=== PATIENT | female | born 1955 | race Caucasian/White ===

== ENCOUNTER → 2016-08-21 | Outpatient (CLI) | payer OTHER ==
[~2016-08-21] MED LIST: ACYC1CAP16 PO; BUPR150T3 PO; ESTR.9 PO; MACR100C PO; PHEN-426 PO; PROP10TA6 PO; TIZA4CAP PO; ZOLO25TA PO; ZOLP1TAB32 PO
[2016-08-21 16:22] LABS: BICARBONATE 31.3 MEQ/L (21.0-32.0); HDL CHOLESTEROL 84.7 MG/DL (40.0-60.0); INDIRECT BILIRUBIN 0.2 MG/DL (0.0-0.8); POTASSIUM 3.9 MEQ/L (3.5-5.1); TOTAL BILIRUBIN ADULT 0.3 MG/DL (0.2-1.0)
== END ==
LOC: PLAB 10:31
PROVIDERS: ATTEND Family Medicine
DX: E78.1 Pure hyperglyceridemia (principal); N18.2 Chronic kidney disease, stage 2 (mild)
CPT/HCPCS: 80048; 80061; 80076

== ENCOUNTER → 2016-12-12 | Outpatient (CLI) | payer OTHER ==
[2016-12-12 16:30] LABS: ALT (GPT) 23 U/L (10-53); ANION GAP 7 MEQ/L (5-15); AST (GOT) 17 U/L (15-37); BICARBONATE 30.8 MEQ/L (21.0-32.0); BLOOD UREA NITROGEN 10 MG/DL (7-18); CHLORIDE 106 MEQ/L (98-107); GLOMERULAR FILTRATION RATE 70 ML/MIN (>89); GLUCOSE,FASTING 107 MG/DL (74-99); POTASSIUM 4.3 MEQ/L (3.5-5.1); SODIUM (NA) 144 MEQ/L (136-145)
[2016-12-12 16:32] LABS: ALKALINE PHOSPHATASE 44 U/L (45-117); HDL CHOLESTEROL 63.8 MG/DL (40.0-60.0); INDIRECT BILIRUBIN 0.1 MG/DL (0.0-0.8); LDL CHOLESTEROL 117 MG/DL (0-99); TOTAL BILIRUBIN ADULT 0.2 MG/DL (0.2-1.0)
== END ==
LOC: PLAB 12:36
PROVIDERS: ATTEND Family Medicine
DX: E78.1 Pure hyperglyceridemia (principal)
CPT/HCPCS: 80048; 80061; 80076

== ENCOUNTER → 2017-04-03 | Outpatient (CLI) | payer OTHER ==
[~2017-04-03] MED LIST changes: +AMBI5TAB PO; +BUPR150CR PO; +CHLORHEXIDINE GLUCONATE 2 % 1 PACK (2 CLOTHS) TOPICAL PRN; +ESTR0.62 VAGINAL; +GLUC500C36 PO; +HYDR12.56 PO; +INSULIN HUMAN REGULAR 1,000 UNITS/10 ML VIAL SQ PRN; +LACTATED RINGER'S 1000 ML IV PRN; +LORA-392 SL; +METOPROLOL TARTRATE 25 MG TAB PO PRN; +POVIDONE IODINE 5% (ANTISEPSIS KIT) 4 APPLICATIONS EACH NARE PRN; +PROPOFOL 500 MG/50 ML INJ 50 ML ONE; +SODIUM CHLORID 0.9% 500 ML IV PRN; +VIIB10TA PO
[2017-04-03 10:13] VITALS: BP 119/80; PULSE 67; RESP 18; TEMP 98.1; O2SAT 98
--- NOTE | 2017-04-03 13:41 | EKG ---
Date Performed: 04/03/2017 Time Performed: 10:06:26 PTAGE: 61 years EKG: SINUS BRADYCARDIA POSSIBLE ANTERIOR MYOCARDIAL INFARCTION , PROBABLY OLD BORDERLINE ECG PREVIOUS TRACING : 06/06/2012 15.31 DOCTOR: Kris Kay Interpretating Date/Time 04/03/2017 13:39:10
[2017-04-03 13:50] VITALS: BP 107/71; PULSE 67; RESP 18; TEMP 97.6; O2SAT 98
--- NOTE | 2017-04-03 14:01 | MR ---
cc: ALBA CHERRY DATE: 04/03/2017 DATE OF : 1955 PROCEDURE Upper endoscopy and colonoscopy. INDICATION FOR PROCEDURE 1. History of gastroesophageal reflux disease. 2. Upper mid abdominal pain. 3. Constipation. 4. History of colon polyps, surveillance colonoscopy is being performed at this time as well. Photographs and biopsies were taken. PREMEDICATION Administered by anesthesiology. MONITORING Monitoring was accomplished with pulse oximeter, EKG, blood pressure monitor. PROCEDURE NOTE After informed consent was obtained and procedure, risks and benefits were explained including the risks of bleeding, sepsis, perforation, risk of anesthesia, the patient was placed in left lateral position and the video endoscope was inserted into the esophagus under direct visualization. The esophagus appeared to be normal, however, about 2 or 3 cm below the EG junction there appeared to be a previous lap band within an area that was slightly narrowed and with minimal resistance to pass with the scope. This was appreciated more so on the retroflex view. Photographs were taken. No mass lesions or abnormalities were noted otherwise. There was no evidence of gross esophagitis. The stomach itself appeared to be unremarkable otherwise throughout in the body and the antrum. The pylorus was patent. First, second, third portion of the duodenum were unremarkable. The scope was then gradually withdrawn and inspection of the rest of the proximal to mid esophagus was unremarkable also. The patient was repositioned and the colonoscope was inserted in the rectum. There was some tortuosity to the left colon and distal transverse colon. The scope was advanced to the cecal position. The ileocecal valve and the orifice of the ileocecal valve was normal, two diminutive polyps were found in the cecum. These were biopsied off and removed. There was slight evidence of minimal melanosis coli in the right colon as well. Endoscope was withdrawn and in the distal transverse colon one diminutive polyp was also found and biopsied off and removed also. The rest of the exam was unremarkable. In the rectum the scope was retroflexed. There was evidence of minimal hemorrhoids internally but the patient had rather large external anal folds with grade 1 to grade 2 external hemorrhoids as well. No active bleeding was noted. The patient tolerated these procedures well. No immediate complications were noted. IMPRESSION 1. Unremarkable panendoscopy. The patient has evidence of previous lap band in the proximal portion of the stomach, is not known if this has slipped upwards proximally since its original position. The stomach and esophagus were otherwise unremarkable. Duodenum was normal as well. 2. Colonoscopy revealed diminutive polyps, two in the cecum, one in the transverse colon, biopsied off and removed. There was evidence of minimal to mild melanosis coli in the right colon. Tortuosity was also noted in left colon and hemorrhoids were noted as mentioned above. PLAN Will follow the biopsies taken today of the colonic polyps. Recommend repeat colonoscopy in 5 years for surveillance due to prior history of colon polyps. Would treat the patient symptomatically with antispasmodic therapy for abdominal pain and follow up clinically as an outpatient. MD ALEXANDRIA Ramirez/MATTEO /1:20 PM /1:38 PM
== END ==
LOC: HSDC 09:25
PROVIDERS: ATTEND Internal Medicine Gastroenterology
DX: K21.9 Gastro-esophageal reflux disease without esophagitis (principal); D12.0 Benign neoplasm of cecum; D12.3 Benign neoplasm of transverse colon; K63.89 Other specified diseases of intestine; K64.1 Second degree hemorrhoids; K64.0 First degree hemorrhoids; K64.8 Other hemorrhoids; K59.00 Constipation, unspecified; Z98.84 Bariatric surgery status; Z01.810 Encounter for preprocedural cardiovascular examination
CPT/HCPCS: 88305; 93005

== ENCOUNTER → 2017-08-15 | Outpatient (CLI) | payer OTHER ==
[~2017-08-15] MED LIST changes: -ACYC1CAP16 PO; -BUPR150T3 PO; -CHLORHEXIDINE GLUCONATE 2 % 1 PACK (2 CLOTHS) TOPICAL PRN; -ESTR.9 PO; -INSULIN HUMAN REGULAR 1,000 UNITS/10 ML VIAL SQ PRN; -LACTATED RINGER'S 1000 ML IV PRN; -MACR100C PO; -METOPROLOL TARTRATE 25 MG TAB PO PRN; -PHEN-426 PO; -POVIDONE IODINE 5% (ANTISEPSIS KIT) 4 APPLICATIONS EACH NARE PRN; -PROPOFOL 500 MG/50 ML INJ 50 ML ONE; -SODIUM CHLORID 0.9% 500 ML IV PRN; -TIZA4CAP PO; -ZOLO25TA PO; -ZOLP1TAB32 PO
[2017-08-15 14:02] LABS: ALBUMIN 3.8 GM/DL (3.4-5.0)
[2017-08-15 14:07] LABS: CHOLESTEROL/ HDL RATIO 2.25 RATIO; DIRECT BILIRUBIN ADULT 0.1 MG/DL (0.0-0.2); HDL CHOLESTEROL 78.6 MG/DL (40.0-60.0); INDIRECT BILIRUBIN 0.2 MG/DL (0.0-0.8); TOTAL BILIRUBIN ADULT 0.3 MG/DL (0.2-1.0); TOTAL PROTEIN 7.7 GM/DL (6.4-8.2)
== END ==
LOC: PLAB 11:01
PROVIDERS: ATTEND Family Medicine
DX: E78.1 Pure hyperglyceridemia (principal)
CPT/HCPCS: 36415; 80061; 80076

== ENCOUNTER → 2017-08-20 | Outpatient (CLI) | payer OTHER ==
[2017-08-20 18:14] LABS: BASOPHIL % 0.3 % (0.0-2.0); EOSINOPHIL # 0.1 TH/MM3 (0-0.4); EOSINOPHIL % 2.4 % (0.0-4.0); HEMATOCRIT 39.6 % (35.0-46.0); HEMOGLOBIN 13.3 GM/DL (11.6-15.3); LYMPH % 46.6 % (9.0-44.0); LYMPHOCYTE # 2.2 TH/MM3 (1.0-4.8); MEAN CELL VOLUME 90.2 FL (80.0-100.0); MEAN CORPUSCULAR HEMOGLOBIN 30.3 PG (27.0-34.0); MEAN CORPUSCULAR HGB CONC 33.6 % (32.0-36.0); MEAN PLATELET VOLUME 7.1 FL (7.0-11.0); MONO % 6.8 % (0.0-8.0); MONOCYTE # 0.3 TH/MM3 (0-0.9); NEUT % 43.9 % (16.0-70.0); PLATELET COUNT 266 TH/MM3 (150-450); RED BLOOD COUNT 4.38 MIL/MM3 (4.00-5.30); RED CELL DISTRIBUTION WIDTH 13.4 % (11.6-17.2); WHITE BLOOD COUNT 4.7 TH/MM3 (4.0-11.0)
[2017-08-20 18:20] LABS: BICARBONATE 28.5 MEQ/L (21.0-32.0); CALCIUM 8.9 MG/DL (8.5-10.1); CREATININE 0.89 MG/DL (0.50-1.00)
[2017-08-20 18:30] LABS: FREE T4 1.08 NG/DL (0.76-1.46)
== END ==
LOC: PLAB 11:53
PROVIDERS: ATTEND Family Medicine
DX: E55.9 Vitamin D deficiency, unspecified (principal)
CPT/HCPCS: 36415; 80048; 82306; 84439; 84443; 85025

== ENCOUNTER → 2017-11-15 | Outpatient (CLI) | payer OTHER ==
[2017-11-15 13:40] LABS: AUTOMATED NEUTROPHIL # 1.7 TH/MM3 (1.8-7.7); BASOPHIL % 0.4 % (0.0-2.0); EOSINOPHIL # 0.1 TH/MM3 (0-0.4); EOSINOPHIL % 2.8 % (0.0-4.0); HEMATOCRIT 39.1 % (35.0-46.0); HEMOGLOBIN 12.9 GM/DL (11.6-15.3); LYMPH % 43.9 % (9.0-44.0); LYMPHOCYTE # 1.6 TH/MM3 (1.0-4.8); MEAN CELL VOLUME 89.3 FL (80.0-100.0); MEAN CORPUSCULAR HEMOGLOBIN 29.5 PG (27.0-34.0); MEAN PLATELET VOLUME 7.1 FL (7.0-11.0); MONO % 7.1 % (0.0-8.0); MONOCYTE # 0.3 TH/MM3 (0-0.9); NEUT % 45.8 % (16.0-70.0); PLATELET COUNT 298 TH/MM3 (150-450); RED BLOOD COUNT 4.38 MIL/MM3 (4.00-5.30); RED CELL DISTRIBUTION WIDTH 13.9 % (11.6-17.2); WHITE BLOOD COUNT 3.7 TH/MM3 (4.0-11.0)
[2017-11-15 13:48] LABS: ALBUMIN 3.5 GM/DL (3.4-5.0); BICARBONATE 30.6 MEQ/L (21.0-32.0); CALCIUM 9.3 MG/DL (8.5-10.1); CREATININE 0.96 MG/DL (0.50-1.00); DIRECT BILIRUBIN ADULT 0.1 MG/DL (0.0-0.2)
[2017-11-15 13:56] LABS: CHOLESTEROL/ HDL RATIO 2.16 RATIO; FREE T4 1.1 NG/DL (0.76-1.46); HDL CHOLESTEROL 70.6 MG/DL (40.0-60.0); INDIRECT BILIRUBIN 0.2 MG/DL (0.0-0.8); TOTAL BILIRUBIN ADULT 0.3 MG/DL (0.2-1.0); TOTAL PROTEIN 7.2 GM/DL (6.4-8.2)
== END ==
LOC: PLAB 10:25
PROVIDERS: ATTEND Family Medicine
DX: E55.9 Vitamin D deficiency, unspecified (principal); E78.1 Pure hyperglyceridemia
CPT/HCPCS: 36415; 80048; 80061; 80076; 82306; 84439; 84443; 85025

== ENCOUNTER 2018-04-10 00:39 | Inpatient (IN) ==
[2018-04-10 01:36] LABS: Baso % (Auto) 0.2 % (0.0-2.0); Eos # (Auto) 0.1 th/mm3 (0.0-0.4); Eos % (Auto) 0.7 % (0.0-4.0); Hemoglobin 13.8 gm/dL (11.6-15.3); Lymph # (Auto) 2.4 th/mm3 (1.0-4.8); Lymph % (Auto) 30.2 % (9.0-44.0); Mean Corpuscular HGB Conc 32.8 % (32.0-36.0); Mean Corpuscular Hemoglobin 29.8 pg (27.0-34.0); Mean Corpuscular Volume 90.9 fL (80.0-100.0); Mono # (Auto) 0.4 th/mm3 (0.0-0.9); Mono % (Auto) 4.9 % (0.0-8.0); Neut # (Auto) 5.1 th/mm3 (1.8-7.7); Platelet Count 284 th/mm3 (150-450); Red Blood Count 4.62 mil/mm3 (4.00-5.30); Red Cell Distribution Width 13.5 % (11.6-17.2)
[2018-04-10 01:53] LABS: Alanine Aminotransferase 19 U/L (10-53); Albumin 3.9 g/dL (3.4-5.0); Anion Gap 7 meq/L (5-15); Aspartate Aminotransferase 10 U/L (15-37); Blood Urea Nitrogen 8 mg/dL (7-18); Calcium 9.3 mg/dL (8.5-10.1); Carbon Dioxide 32.2 meq/L (21.0-32.0); Chloride 103 meq/L (98-107); Glomerular Filtration Rate 69 mL/min (>89); Glucose,Random 91 mg/dL (74-106); Lipase 91 U/L (73-393); Magnesium 2.3 mg/dL (1.5-2.5); Potassium 3.4 meq/L (3.5-5.1); Sodium 142 meq/L (136-145)
[2018-04-10 01:55] LABS: Alkaline Phosphatase 30 U/L (45-117); Total Protein 7.8 g/dL (6.4-8.2)
--- NOTE | 2018-04-10 02:00 | ED ---
HPI General Chief complaint: Nausea/Vomiting/Diarrhea Stated complaint: NV Time Seen by Provider: 04/10/18 01:21 Source: patient Mode of arrival: ambulatory Limitations: no limitations History of Present Illness HPI Narrative: 62-year-old female presents to the emergency department by private transportation for complaint of nausea and recurrent vomiting. Patient states that she has had lap band procedure performed and over the past year has had difficulties with complications from the lap band. Within the past month she has had constant frequent reflux and nausea and vomiting. Patient reportedly developed fever and was started on azithromycin by phone call from her bariatric surgeon's office yesterday azithromycin. Patient states she has prescription for Zofran which is provided no symptom relief. Patient is reportedly waiting to have scheduled removal of her lap band by her bariatric surgeon Dr. Cho. Patient has had upper endoscopy by her psych np who suggested that the LAP-BAND has moved and is displaced and has complications secondary to adhesions. Patient states that her symptoms are not different but just persistent so because of frustration she came to the emergency room tonight patient states that she typically during the day is able to handle her reflux secretions and when she has reflux she typically has coughing spasms which sometimes cause her to reportedly aspirate. Patient states this is becoming more frequent and more intense. Patient does not complain of chest pain or shortness of breath. MD complaint: Reports nausea, vomiting and abdominal pain Onset (ago): week(s) Description of Vomiting: food contents and watery Description of Diarrhea: none Associated Abdominal Pain: Yes Location of pain: Reports periumbilical and LUQ Radiation: does not radiate Severity: similar to previous episodes Quality: Reports cramping and stabbing Pain Consistency: intermittent and colicky Relieving factors: rest and other Exacerbating factors: eating and other Context: Reports recent antibiotic use and history of abdominal surgery (Lap band); Denies foreign travel, possible food poisoning, sick contacts, recent surgery/procedure, alcohol abuse, trauma, anticoagulant use, aspirin use, caffeine, self induced, smoking, CO exposure, new medication and marijuana use Associated symptoms: Reports cough and nausea/vomiting; Denies myalgias, chest pain, diaphoresis, fever/chills, headaches, loss of appetite, malaise, rash, dysuria, shortness of breath, syncope, weakness, decreased urine output, fecal incontinence, tenesmus, altered mental status, anxiety, fatigue, bloating, numbness, tinnitus, palpitation and change in vision Related Data Home Medications Medication Instructions Recorded Confirmed aripiprazole 2 mg PO DAILY 04/10/18 04/10/18 azithromycin 250 mg PO DAILY 04/10/18 04/10/18 bupropion HCl 150 mg PO BID 04/10/18 04/10/18 conjugated estrogens [Premarin] 0.625 mg PO DAILY 04/10/18 04/10/18 fenofibrate 150 mg PO DAILY 04/10/18 04/10/18 hydrochlorothiazide 12.5 mg PO DAILY 04/10/18 04/10/18 lorazepam 1 mg PO DAILY 04/10/18 04/10/18 ondansetron 4 mg PO QID PRN 04/10/18 04/10/18 pantoprazole 40 mg PO DAILY 04/10/18 04/10/18 propranolol 10 mg PO BID 04/10/18 04/10/18 sennosides [Senna Laxative] 8.6 mg PO BID PRN 04/10/18 04/10/18 sucralfate 1 g PO Q8HR PRN 04/10/18 04/10/18 valacyclovir 500 mg PO DAILY 04/10/18 04/10/18 zolpidem 5 mg PO HS 04/10/18 04/10/18 Allergies Allergy/AdvReac Type Severity Reaction Status Date / Time No Known Allergies Allergy Verified 04/10/18 00:41 Review of Systems ROS: all other systems reviewed are negative PMFSH Medical History Medical History Basal cell carcinoma (Acute) GERD (gastroesophageal reflux disease) (Acute) History of hysterectomy (Acute) Hypertension (Acute) Skin cancer (Acute) Surgical History Surgical History History of ovarian resection (Acute) Hx of cholecystectomy (Acute) Hx of laparoscopic gastric banding (Acute) Hx of tonsillectomy (Acute) Family History Family History Father Diabetes Hypertension Social History Social History Substance History: No History of Abuse Second Hand Smoke Exposure: No Smoking Status: Former smoker How Often Do You Have a Drink Containing Alcohol: Monthly or less Recent Travel in [facility] within the Last 8 Weeks: No Recent Out of Country Travel within the Last 8 Weeks: No Immunization History Tetanus Immunization: <5 Years Exam Narrative Exam Narrative: GENERAL: Well-nourished, well-developed patient. No acute distress no respiratory distress. Triage vital signs are within normal range. Room air O2 saturation 98% no tachypnea no tachycardia patient is normotensive and afebrile. SKIN: Focused skin assessment warm/dry. HEAD: Normocephalic. EYES: No scleral icterus. No injection or drainage. NECK: Supple, trachea midline. No JVD or lymphadenopathy. CARDIOVASCULAR: Regular rate and rhythm without murmurs, gallops, or rubs. RESPIRATORY: Breath sounds equal bilaterally. No accessory muscle use. GASTROINTESTINAL: Abdomen soft, non-tender, nondistended. MUSCULOSKELETAL: No cyanosis, or edema. BACK: Nontender without obvious deformity. No CVA tenderness. Course Initial Documented Vital Signs Temperature 98.9 F 04/10/18 00:41 Pulse Rate 72 04/10/18 00:41 Respiratory Rate 16 04/10/18 00:41 Blood Pressure 117/60 04/10/18 00:41 Pulse Oximetry 96 04/10/18 00:41 Last Documented Vital Signs Temperature 97.6 F 04/11/18 00:00 Pulse Rate 56 L 04/11/18 00:00 Respiratory Rate 16 04/11/18 00:00 Blood Pressure 86/54 L 04/11/18 00:00 Pulse Oximetry 94 L 04/11/18 00:00 Medical Decision Making [facility] Narrative Medical decision making narrative: althoughPatient with chronic complications post lap band with reported escalating symptoms over the past 1 month and past 3 days. Patient is prescribed azithromycin and Zofran for symptoms. Patient has been in contact with her bariatric surgeon and actually was prescribed azithromycin yesterday from the office. Patient is waiting to have her lap band device removed. Patient reports none of her symptoms are new although they seem to be more intense over the past 3 days. Upper endoscopy by her psych np Dr. Oconnell last performed 04/03/17 showed a normal esophagus and normal stomach of note for procedure narrowing just distal to the GE junction suspicious for scarring. Lab specimens collected for resulting patient administered Zofran 4 mg IV CBC with automated differential is normal. Chest x-ray per reading radiologist shows area of suspicion for mild perihilar infiltrate on the right, patient has normal range vital signs afebrile, lactic acid is not elevated at 1.2, patient states that she has been dealing with reported aspiration over the past several weeks Due to report of frequent vomiting with suspected possible episodes of aspiration reportedly she was just started on azithromycin however concern for patient reporting that she does not feel well and imaging study identifying possible infiltrate therefore will broaden antibiotic spectrum to include Zosyn and Flagyl as well as her current azithromycin which she is taken today 500 mg with recommendation for admission. Patient states that she does not feel like she wants to be admitted does not feel like she needs to be and has follow-up with her primary care and her bariatric surgeon. Patient is willing to receive IV antibiotics as planned. Blood cultures are pending. Patient reports now vomiting stomach contents from previously administered oral acetaminophen. Patient identified to have fever of 102.[address] abdomen pelvis identifies dilation of the proximal stomach proximal to lap band site and lower esophagus. Patient's case discussed with bariatric surgeon Dr. Cho request the patient be admitted to medicine service for management of pneumonia request Gastrografin swallow in the a.m. with consult to him in the a.m. Patient is willing to stay as she states she feels worse now that she has developed fever and has had chills. Patient's case discussed with medicine service [facility] MD Dr Mcgarry At 435 temperature elevation 102.5 f. Patient had received acetaminophen earlier. Blood cultures obtained prior to administration of IV antibiotics. Patient given additional bolus of normal saline. In view of infiltrate fever and report of aspiration patient will be admitted for ongoing IV antibiotics and management of possible aspiration pneumonia Medical Screen Exam Complete: Yes Emergency Medical Condition: Yes Differential Diagnosis Differential Diagnosis: Vomiting, ileus, bowel obstruction, gastroenteritis, pancreatitis, gastritis, biliary colic Medical Records Medical records reviewed: Yes I reviewed the patient's medical records. Lab Data Result diagrams: 04/10/18 01:25 04/10/18 01:25 Lab Results 04/10/18 04/10/18 04/10/18 Range/Units 01:25 01:25 02:20 WBC 8.0 (4.0-11.0) th/mm3 RBC 4.62 (4.00-5.30) mil/mm3 Hgb 13.8 (11.6-15.3) gm/dL Hct 42.0 (35.0-46.0) % MCV 90.9 (80.0-100.0) fL MCH 29.8 (27.0-34.0) pg MCHC 32.8 (32.0-36.0) % RDW 13.5 (11.6-17.2) % Plt Count 284 (150-450) th/mm3 MPV 7.0 (7.0-11.0) fL Neut % (Auto) 64.0 (16.0-70.0) % Lymph % (Auto) 30.2 (9.0-44.0) % [place] % (Auto) 4.9 (0.0-8.0) % Eos % (Auto) 0.7 (0.0-4.0) % Baso % (Auto) 0.2 (0.0-2.0) % Neut # (Auto) 5.1 (1.8-7.7) th/mm3 Lymph # (Auto) 2.4 (1.0-4.8) th/mm3 [place] # (Auto) 0.4 (0.0-0.9) th/mm3 Eos # (Auto) 0.1 (0.0-0.4) th/mm3 Baso # (Auto) 0.0 (0.0-0.2) th/mm3 WBC Differential . Differential Comment Auto diff final Sodium 142 (136-145) meq/L Potassium 3.4 L (3.5-5.1) meq/L Chloride 103 (98-107) meq/L Carbon Dioxide 32.2 H (21.0-32.0) meq/L Anion Gap 7 (5-15) meq/L BUN 8 (7-18) mg/dL Creatinine 0.84 (0.50-1.00) mg/dL Estimated GFR 69 L (>89) mL/min Random Glucose 91 (74-106) mg/dL Lactic Acid 1.2 (0.4-2.0) mmol/L Calcium 9.3 (8.5-10.1) mg/dL Magnesium 2.3 (1.5-2.5) mg/dL Total Bilirubin 0.5 (0.2-1.0) mg/dL AST 10 L (15-37) U/L ALT 19 (10-53) U/L Alkaline Phosphatase 30 L (45-117) U/L Total Protein 7.8 (6.4-8.2) g/dL Albumin 3.9 (3.4-5.0) g/dL Lipase 91 (73-393) U/L Urine Color (Yellw/Straw) Urine Clarity (Clear) Urine pH (5.0-8.5) Ur Specific [place] (1.002-1.035) Urine Protein (Neg-Trace) mg/dL Urine Glucose (UA) (Negative) mg/dL Urine Ketones (Negative) mg/dL Urine Occult Blood (Negative) Urine Nitrate (Negative) Urine Bilirubin (Negative) Urine Urobilinogen (Less than 2) mg/dL Ur Leukocyte Esterase (Negative) Urine RBC (0-3) /hpf Urine WBC (0-5) /hpf Ur Squamous Epith Cells (0-5) /hpf Urine Mucus (Occasional) /lpf Micro UA Comment Ur Microscopic Review Urine Culture Comments 04/10/18 Range/Units 06:45 WBC (4.0-11.0) th/mm3 RBC (4.00-5.30) mil/mm3 Hgb (11.6-15.3) gm/dL Hct (35.0-46.0) % MCV (80.0-100.0) fL MCH (27.0-34.0) pg MCHC (32.0-36.0) % RDW (11.6-17.2) % Plt Count (150-450) th/mm3 MPV (7.0-11.0) fL Neut % (Auto) (16.0-70.0) % Lymph % (Auto) (9.0-44.0) % [place] % (Auto) (0.0-8.0) % Eos % (Auto) (0.0-4.0) % Baso % (Auto) (0.0-2.0) % Neut # (Auto) (1.8-7.7) th/mm3 Lymph # (Auto) (1.0-4.8) th/mm3 [place] # (Auto) (0.0-0.9) th/mm3 Eos # (Auto) (0.0-0.4) th/mm3 Baso # (Auto) (0.0-0.2) th/mm3 WBC Differential Differential Comment Sodium (136-145) meq/L Potassium (3.5-5.1) meq/L Chloride (98-107) meq/L Carbon Dioxide (21.0-32.0) meq/L Anion Gap (5-15) meq/L BUN (7-18) mg/dL Creatinine (0.50-1.00) mg/dL Estimated GFR (>89) mL/min Random Glucose (74-106) mg/dL Lactic Acid (0.4-2.0) mmol/L Calcium (8.5-10.1) mg/dL Magnesium (1.5-2.5) mg/dL Total Bilirubin (0.2-1.0) mg/dL AST (15-37) U/L ALT (10-53) U/L Alkaline Phosphatase (45-117) U/L Total Protein (6.4-8.2) g/dL Albumin (3.4-5.0) g/dL Lipase (73-393) U/L Urine Color Yellow (Yellw/Straw) Urine Clarity Clear (Clear) Urine pH 5.0 (5.0-8.5) Ur Specific [place] Greater than 1.060 H (1.002-1.035) Urine Protein Negative (Neg-Trace) mg/dL Urine Glucose (UA) Negative (Negative) mg/dL Urine Ketones Negative (Negative) mg/dL Urine Occult Blood Small H (Negative) Urine Nitrate Negative (Negative) Urine Bilirubin Negative (Negative) Urine Urobilinogen Less than 2 (Less than 2) mg/dL Ur Leukocyte Esterase Negative (Negative) Urine RBC 2 (0-3) /hpf Urine WBC Less than 1 (0-5) /hpf Ur Squamous Epith Cells 2 (0-5) /hpf Urine Mucus Few H (Occasional) /lpf Micro UA Comment Culture not ind Ur Microscopic Review Not Reportable Urine Culture Comments Culture not ind Imaging Data Radiologist's impression: Chest X-Ray 04/10/18 01:21 CONCLUSION: Mild suspected patchy consolidation in the right perihilar region. Abdomen/Pelvis CT 04/10/18 03:52 CONCLUSION: 1. Lap band in place with distention of the stomach above the lap band and the distal esophagus. 2. Patchy areas of consolidation or atelectasis in the lower lungs bilaterally. 3. Hepatic steatosis. Discharge Plan Discharge Disposition Patient Disposition: 30 Still Patient Discharge Condition Condition: Stable Discharge Details Diagnosis: Vomiting, Pneumonia, Hx of laparoscopic gastric banding Physicians Team ED Provider: Elisa Fernando Primary Care Provider: Marky Farrar Attending Provider: Katy Wells Other Providers: Piter Wilkes ED Status: Left Department Discharge Information Discharge Date/Time: 04/10/18 06:50
--- NOTE | 2018-04-10 02:05 | XR ---
EXAM DATE: 04/10/2018 1:21 AM EDT AGE/SEX: 62 years / Female INDICATIONS: Chest pain. CLINICAL DATA: This is the patient's initial encounter. Patient reports that signs and symptoms have been present for 1 day and indicates a pain score of 5/10. MEDICAL/SURGICAL HISTORY: None. None. COMPARISON: No prior exams available for comparison. FINDINGS: The heart size is normal. There are some patchy density seen in the right perihilar region. There is linear density at the right mid lung likely related to atelectasis or thickening of the fissure. The left lung is clear. The costophrenic angles are clear. The bony structures are intact. CONCLUSION: Mild suspected patchy consolidation in the right perihilar region. Electronically signed by: Dony Albert MD 04/10/2018 2:03 AM EDT
[2018-04-10] MEDS ORDERED: Sodium Chlor 0.9% Inj 500 ML IV.SIG SCH (03:00)
[2018-04-10] MEDS ORDERED: Piperacil/Tazo 4.5 GM Premix 4.5 GM/100 ML BAG IV.SIG ONE (03:17)
[2018-04-10] MEDS ORDERED: Ibuprofen Liq 100 MG/5 ML UDC PO ONE (04:39)
--- NOTE | 2018-04-10 05:12 | CT ---
EXAM DATE: 04/10/2018 3:58 AM EDT AGE/SEX: 62 years / Female INDICATIONS: Upper abdominal pain with nausea and vomiting. CLINICAL DATA: This is the patient's initial encounter. Patient reports that signs and symptoms have been present for 2 days and indicates a pain score of 4/10. MEDICAL/SURGICAL HISTORY: None. Hysterectomy. Cholecystectomy. Gastric band. ORAL CONTRAST: No oral contrast ingested. RADIATION DOSE: 16.89 CTDI (mGy) [place] [facility] [place] 06/05/2012. . TECHNIQUE: Multiple contiguous axial images were obtained through the abdomen and pelvis following b olus infusion of 70 ml Omnipaque 350 (iohexol) nonionic water-soluble contrast as a single exam dos e. No oral contrast ingested. Using automated exposure control and adjustment of the mA and/or kV ac cording to patient size, radiation dose was kept as low as reasonably achievable to obtain optimal di agnostic quality images. DICOM format image data is available electronically for review and comparis on. FINDINGS: Lower Lungs: There are patchy areas of consolidation or atelectasis at the lower lungs bilaterally. Liver: There is diffuse decreased attenuation to the liver. No focal hepatic lesions are seen. The pa tient is status post cholecystectomy. Spleen: Homogeneous density without enlargement. Pancreas: Unremarkable without mass or calcification. Kidneys: Normal in size and shape. No evidence of mass or hydronephrosis. Adrenal Glands: Unremarkable. Aorta: The aorta and proximal iliac vessels are grossly unremarkable without aneurysmal dilation. Bowel/Mesentery: There is a lap band present. There is some distention of stomach above the lap band and distention of the distal esophagus. The remaining aspects of the bowel appears normal. The appen nicholas appears normal. Abdominal Wall: Intact. Retroperitoneum: No evidence of adenopathy in the retrocrural, para-aortic, or deep pelvic regions. Bladder: Contours are smooth. Reproductive Organs: The patient is status post hysterectomy. Inguinal: The inguinal region is unremarkable without evidence of adenopathy. Bony Structures: There is degenerative change at the lower lumbar spine. CONCLUSION: 1. Lap band in place with distention of the stomach above the lap band and the distal esophagus. 2. Patchy areas of consolidation or atelectasis in the lower lungs bilaterally. 3. Hepatic steatosis. Electronically signed by: Dony Albert MD 04/10/2018 5:11 AM EDT
[2018-04-10] MEDS ORDERED: Acetaminophen 325 MG Tablet PO PRN (05:57)
[2018-04-10] MEDS ORDERED: Bisacodyl 10 MG Supp RECTAL PRN ×2 (05:57→13:13)
[2018-04-10 06:56] LABS: Bilirubin,Urine Negative (Negative); Clarity,Urine Clear (Clear); Color,Urine Yellow (Yellw/Straw); Glucose,Urine (UA) Negative (Negative); Leukocyte Esterase,Urine Negative (Negative); Mucus,Urine Few /lpf (Occasional); Nitrite,Urine Negative (Negative); Squamous Epithelial Cell,Urine 2 /hpf (0-5)
[2018-04-10] MEDS ORDERED: Senna/Docusate Sodium 8.6/50 MG Tablet PO SCH (09:00)
--- NOTE | 2018-04-10 09:02 | P.HP ---
History of Present Illness Service: Hospitalist Primary Care Physician: Marky Farrar MD Chief Complaint: intractable nausea and vomiting History of Present Illness: This is a 62yo female with a PMHX of HTN, melanoma, GERD, anxiety, depression and previous lap band surgery who presented to [facility] ED with complaints of intractable nausea and vomiting. Patient states she had a lap band placed approximately 10 years ago however over the past year she has had increasing difficulties with inability to keep anything down secondary to complications from her lap band. Over the past month and more so over the past 3-4 days, she has had near constant reflux, nausea and vomiting. She has been unable to sleep. She also has developed fever and was recently started on azithromycin by her bariatric surgeon. She has been taking Zofran at home without any relief. Patient is reportedly scheduled to have removal of her lap band in the near future by her bariatric surgeon Dr. Cho. Patient has had a recent upper endoscopy by her shadowgraph operator who suggested the lap to be removed due to it being displaced and having a lot of adhesions. Patient states she came to the ED today because she is having difficulty managing her secretions and states that she has coughing spasms that cause her to aspirate. She denies any complaints of chest pain or shortness of breath. She complains of associated abdominal pain mostly on the left side. Review of Systems All other systems reviewed negative except as stated in HPI PMFSH - History History Provided By: Patient - Medical History Medical History: Medical History (Last Updated 04/10/18 @ 15:23 by Ella Coto) Basal cell carcinoma GERD (gastroesophageal reflux disease) History of hysterectomy Hypertension Skin cancer - Surgical History Surgical History: Surgical History (Last Reviewed 04/10/18 @ 09:18 by Ella Coto) History of ovarian resection Hx of cholecystectomy Hx of laparoscopic gastric banding Hx of tonsillectomy - Family History Family History: Family History (Last Updated 04/10/18 @ 09:18 by Ella Coto) Father Diabetes Hypertension - Social History I have reviewed the patient's Social History: Yes - Tobacco History Second Hand Smoke Exposure: No Tobacco Use In Past 30 Days: No Smoking Status: Former smoker - Alcohol History How Often Do You Have a Drink Containing Alcohol: Monthly or less - Substance Use History Substance History: No History of Abuse - Travel History Recent Travel in the [facility] Within the Last 8 Weeks: No Recent Travel Out of the Country Within the Last 8 Weeks: No - Immunization History Tetanus Immunization: <5 Years Medications and Allergies Active Medications: Active Medications Acetaminophen (Tylenol) 650 mg PO Q4H PRN PRN Reason: Temp > 100.4 Al Hydroxide/Mg Hydroxide (Milk Of Magnesia Liq) 30 ml PO Q12H PRN PRN Reason: Mild Constipation Bisacodyl (Dulcolax Supp) 10 mg RECTAL DAILY PRN PRN Reason: SEVERE CONSITIPATION Sodium Chloride (Ns Inj) 500 mls @ 0 mls/hr IV.SIG BOLUS CLEMENC[place] Last Infusion: 04/10/18 03:53 Dose: Infused Ceftriaxone Sodium 1,000 mg/ (Sodium Chloride) 100 mls @ 200 mls/hr IV.SIG Q24H [place] Sodium Chloride (Ns Inj) 1,000 mls @ 100 mls/hr IV.CONT .Q10H CLE[place] Piperacillin/Tazobactam/Dextrose (Zosyn 4.5 Gm Premix) 4.5 gm in 100 mls @ 200 mls/hr IV.SIG Q6H CLE[place] Lactulose (Lactulose Liq) 30 ml PO DAILY PRN PRN Reason: SEVERE CONSITIPATION Ondansetron HCl (Zofran Inj) 4 mg IV.PUSH Q6H PRN PRN Reason: NAUSEA OR VOMITING Last Admin: 04/10/18 08:22 Dose: 4 mg Prochlorperazine Edisylate (Compazine Inj) 10 mg IV.PUSH Q6H PRN PRN Reason: NAUSEA/VOMITING Senna/Docusate Sodium (Susan-Colace) 1 tab PO BID CLEMENCIA Sennosides (Senokot) 17.2 mg PO Q12H PRN PRN Reason: Moderate Constipation Sodium Chloride (Ns Flush) 2 ml IV.FLUSH PRN PRN PRN Reason: FLUSH AFTER USING IV ACCESS Trimethobenzamide HCl (Tigan Ing) 200 mg IM Q6H PRN PRN Reason: NAUSEA/VOMITING Allergies Allergy/AdvReac Type Severity Reaction Status Date / Time No Known Allergies Allergy Verified 04/10/18 00:41 Home Medications Medication Instructions Recorded Confirmed Type aripiprazole 2 mg PO DAILY 04/10/18 04/10/18 History azithromycin 250 mg PO DAILY 04/10/18 04/10/18 History bupropion HCl 150 mg PO BID 04/10/18 04/10/18 History conjugated estrogens [Premarin] 0.625 mg PO DAILY 04/10/18 04/10/18 History fenofibrate 150 mg PO DAILY 04/10/18 04/10/18 History hydrochlorothiazide 12.5 mg PO DAILY 04/10/18 04/10/18 History lorazepam 1 mg PO DAILY 04/10/18 04/10/18 History ondansetron 4 mg PO QID PRN 04/10/18 04/10/18 History pantoprazole 40 mg PO DAILY 04/10/18 04/10/18 History propranolol 10 mg PO BID 04/10/18 04/10/18 History sennosides [Senna Laxative] 8.6 mg PO BID PRN 04/10/18 04/10/18 History sucralfate 1 g PO Q8HR PRN 04/10/18 04/10/18 History valacyclovir 500 mg PO DAILY 04/10/18 04/10/18 History zolpidem 5 mg PO HS 04/10/18 04/10/18 History Exam Vital signs: Vital Signs 04/10/18 00:41 04/10/18 02:21 04/10/18 04:39 Temperature 98.9 F 99.0 F 102.2 F H Pulse Rate 72 81 94 H Respiratory Rate 16 16 20 Blood Pressure 117/60 108/69 118/66 Pulse Oximetry 96 98 95 04/10/18 06:04 04/10/18 06:45 04/10/18 08:00 Temperature 99.0 F 98.6 F Pulse Rate 82 70 Respiratory Rate 17 16 Blood Pressure 106/55 L 108/64 Pulse Oximetry 96 92 L Intake & Output 04/09/18 04/10/18 04/10/18 18:59 06:59 18:59 Intake Total 700 / 700 Balance 700 / 700 Weight 91.626 kg Intake: IV 700 / 700 Zosyn 4.5 GM Premix 4.5 gm In 100 / 100 100 ml @ 200 mls/hr IV.SIG ONCE ONE Rx#:[id number] NS Inj 500 ML @ Wide Open IV. 500 / 500 SIG BOLUS CLEMENCIA Rx#:[id number] Flagyl 500 MG Inj 100 ML @ 100 100 / 100 mls/hr IV.SIG ONCE ONE Rx#: [id number] Narrative: GENERAL: WDWN female patient, INAD. Drowsy but able to maintain appropriate conversation. is at the bedside. SKIN: Warm and dry. HEAD: Atraumatic. Normocephalic. EYES: Pupils equal and round. No scleral icterus. No injection or drainage. ENT: No nasal bleeding or discharge. Mucous membranes pink and moist. NECK: Trachea midline. No JVD. CARDIOVASCULAR: Regular rate and rhythm. RESPIRATORY: No accessory muscle use. Clear to auscultation. Breath sounds equal bilaterally. GASTROINTESTINAL: Abdomen soft, non-tender, nondistended. Hepatic and splenic margins not palpable. MUSCULOSKELETAL: Extremities without clubbing, cyanosis, or edema. No obvious deformities. NEUROLOGICAL: Awake. No obvious cranial nerve deficits. Motor grossly within normal limits. Able to move all extremities spontaneously. Normal speech. PSYCHIATRIC: Appropriate mood and affect; insight and judgment normal. Results - Labs CBC & Chem 7: 04/10/18 01:25 04/10/18 01:25 Labs: Laboratory Results - last 24 hr 04/10/18 04/10/18 04/10/18 01:25 01:25 02:20 WBC 8.0 RBC 4.62 Hgb 13.8 Hct 42.0 MCV 90.9 MCH 29.8 MCHC 32.8 RDW 13.5 Plt Count 284 MPV 7.0 Neut % (Auto) 64.0 Lymph % (Auto) 30.2 [place] % (Auto) 4.9 Eos % (Auto) 0.7 Baso % (Auto) 0.2 Neut # (Auto) 5.1 Lymph # (Auto) 2.4 [place] # (Auto) 0.4 Eos # (Auto) 0.1 Baso # (Auto) 0.0 WBC Differential . Differential Comment Auto diff final Sodium 142 Potassium 3.4 L Chloride 103 Carbon Dioxide 32.2 H Anion Gap 7 BUN 8 Creatinine 0.84 Estimated GFR 69 L Random Glucose 91 Lactic Acid 1.2 Calcium 9.3 Magnesium 2.3 Total Bilirubin 0.5 AST 10 L ALT 19 Alkaline Phosphatase 30 L Total Protein 7.8 Albumin 3.9 Lipase 91 Urine Color Urine Clarity Urine pH Ur Specific [place] Urine Protein Urine Glucose (UA) Urine Ketones Urine Occult Blood Urine Nitrate Urine Bilirubin Urine Urobilinogen Ur Leukocyte Esterase Urine RBC Urine WBC Ur Squamous Epith Cells Urine Mucus Micro UA Comment Ur Microscopic Review Urine Culture Comments 04/10/18 06:45 WBC RBC Hgb Hct MCV MCH MCHC RDW Plt Count MPV Neut % (Auto) Lymph % (Auto) [place] % (Auto) Eos % (Auto) Baso % (Auto) Neut # (Auto) Lymph # (Auto) [place] # (Auto) Eos # (Auto) Baso # (Auto) WBC Differential Differential Comment Sodium Potassium Chloride Carbon Dioxide Anion Gap BUN Creatinine Estimated GFR Random Glucose Lactic Acid Calcium Magnesium Total Bilirubin AST ALT Alkaline Phosphatase Total Protein Albumin Lipase Urine Color Yellow Urine Clarity Clear Urine pH 5.0 Ur Specific [place] Greater than 1.060 H Urine Protein Negative Urine Glucose (UA) Negative Urine Ketones Negative Urine Occult Blood Small H Urine Nitrate Negative Urine Bilirubin Negative Urine Urobilinogen Less than 2 Ur Leukocyte Esterase Negative Urine RBC 2 Urine WBC Less than 1 Ur Squamous Epith Cells 2 Urine Mucus Few H Micro UA Comment Culture not ind Ur Microscopic Review Not Reportable Urine Culture Comments Culture not ind - Imaging Impressions Chest X-Ray 04/10/18 01:21 CONCLUSION: Mild suspected patchy consolidation in the right perihilar region. Abdomen/Pelvis CT 04/10/18 03:52 CONCLUSION: 1. Lap band in place with distention of the stomach above the lap band and the distal esophagus. 2. Patchy areas of consolidation or atelectasis in the lower lungs bilaterally. 3. Hepatic steatosis. Caprini VTE Risk Assessment Caprini VTE Risk Assessment: No/Low Risk (score <= 1) Caprini Risk Assessment Model: Point Value = 1 Point Value = 2 Point Value = 3 Point Value = 5 Age 41-60 Minor surgery BMI > 25 kg/m2 Swollen legs Varicose veins or History of unexplained or recurrent spontaneous Oral contraceptives or hormone replacement Sepsis (< 1 month) Serious lung disease, including pneumonia (< 1 month) Abnormal pulmonary function Acute myocardial infarction Congestive heart failure (< 1 month) History of inflammatory bowel disease Medical patient at bed rest Age 61-74 Arthroscopic surgery Major open surgery (> 45 min) Laparoscopic surgery (> 45 min) Malignancy Confined to bed (> 72 hours) Immobilizing plaster cast Central venous access Age >= 75 History of VTE Family history of VTE Factor V Leiden Prothrombin [id number] Lupus anticoagulant Anticardiolipin antibodies Elevated serum homocysteine Heparin-induced thrombocytopenia Other congenital or acquired thrombophilia Stroke (< 1 month) Elective arthroplasty Hip, pelvis, or leg fracture Acute spinal cord injury (< 1 month) Prophylaxis Regimen: Total Risk Factor Score Risk Level Prophylaxis Regimen 0-1 Low Early ambulation 2 Moderate Order ONE of the following: *Sequential Compression Device (SCD) *Heparin 5000 units SQ BID 3-4 Higher Order ONE of the following medications: *Heparin 5000 units SQ TID *Enoxaparin/Lovenox 40 mg SQ daily (WT < 150 kg, CrCl > 30 mL/min) *Enoxaparin/Lovenox 30 mg SQ daily (WT < 150 kg, CrCl > 10-29 mL/min) *Enoxaparin/Lovenox 30 mg SQ BID (WT < 150 kg, CrCl > 30 mL/min) AND/OR *Sequential Compression Device (SCD) 5 or more Highest Order ONE of the following medications: *Heparin 5000 units SQ TID (Preferred with Epidurals) *Enoxaparin/Lovenox 40 mg SQ daily (WT < 150 kg, CrCl > 30 mL/min) *Enoxaparin/Lovenox 30 mg SQ daily (WT < 150 kg, CrCl > 10-29 mL/min) *Enoxaparin/Lovenox 30 mg SQ BID (WT < 150 kg, CrCl > 30 mL/min) AND *Sequential Compression Device (SCD) Assessment and Plan - Plan 62yo female with a PMHX of melanoma, GERD, anxiety, depression and previous lap band surgery who presented to [facility] ED with complaints of intractable nausea and vomiting. Intractable nausea, vomiting and abdominal pain suspect secondary to late complication of Lap Band procedure CT abd/pelvis reveals above the lap band in the distal esophagus, patchy areas of consolidation or atelectasis in the lower lungs bilaterally, hepatic steatosis -Consult patients surgeon Dr. Cho, appreciate assistance -Keep patient n.p.o. -IV fluid hydration -IV antiemetics as needed Concern for aspiration pneumonia CXR with patchy consolidation in the right perihilar region Tmax 102.2, currently afebrile WBC 8.0 -blood cultures pending. Follow up until finalized. -patient given Ceftriaxone, Zosyn and Flagyl in the ED -Continue on IV Zosyn -monitor respiratory status Hypertension -resume on home meds -continue to monitor BP and adjust treatment accordingly GERD -resume on home PPI Anxiety Depression -resume on Abilify and Bupropion DVT prophylaxis -chemical prophylaxis contraindicated secondary to likely surgical intervention Code Status: Full Discussed Condition With: patient, at the bedside, nursing staff, Dr. Wells
[2018-04-10] MEDS ORDERED: Bupivacaine/Epinephrine Inj 0.25% 50 ML Vial ONE (10:32)
[2018-04-10] MEDS: Sod Chloride 0.9% Inj 1,000 ML IV.CONT SCH ×2 (12:00→16:06)
[2018-04-10] MEDS ORDERED: Succinylcholine Inj 100 MG/5 ML Syringe IV.PUSH ONE (12:01)
[2018-04-10] MEDS ORDERED: Lidocaine PF 1% Inj 5 ML Syringe OTHER ONE (12:01)
[2018-04-10] MEDS: Piperacil/Tazo 4.5 GM Premix 4.5 GM/100 ML BAG IV.SIG SCH ×3 (12:23→21:33)
[2018-04-10] MEDS ORDERED: Sugammadex Inj 200 MG/2 ML Vial IV.PUSH ONE (13:04)
[2018-04-10] MEDS ORDERED: Promethazine 25 MG Supp RECTAL PRN (13:13)
[2018-04-10] MEDS ORDERED: HYDROmorphone PF Inj 1 MG/ML Ampul IV.PUSH PRN (13:13)
[2018-04-10] MEDS ORDERED: Post-op Orders (for Pharmacy) OTHER ONE (13:37)
[2018-04-10] MEDS ORDERED: fentaNYL Citrate Inj 100 MCG/2 ML Ampul ONE (13:42)
[2018-04-10] MEDS ORDERED: *morphine SULFATE 4 MG/ML PERIprocedure ONLY ONE (14:10)
[2018-04-10] MEDS: buPROPion 150 MG 12 HR Tablet PO SCH (21:30)
[2018-04-10] MEDS: Propranolol 10 MG Tablet PO SCH (21:30)
[2018-04-10] MEDS: Senna/Docusate Sodium 8.6/50 MG Tablet PO SCH (21:31)
[2018-04-10] MEDS: Zolpidem Tartrate 5 MG Tablet PO SCH (21:32)
[2018-04-11] MEDS: Sod Chloride 0.9% Inj 1,000 ML IV.CONT SCH ×2 (02:15→14:58)
[2018-04-11] MEDS: Piperacil/Tazo 4.5 GM Premix 4.5 GM/100 ML BAG IV.SIG SCH ×4 (02:49→20:20)
[2018-04-11 07:46] LABS: Baso % (Auto) 0.1 % (0.0-2.0); Eos % (Auto) 0.3 % (0.0-4.0); Hematocrit 33.1 % (35.0-46.0); Hemoglobin 11.2 gm/dL (11.6-15.3); Lymph # (Auto) 1.3 th/mm3 (1.0-4.8); Lymph % (Auto) 14.6 % (9.0-44.0); Mean Corpuscular HGB Conc 33.8 % (32.0-36.0); Mean Corpuscular Hemoglobin 30.4 pg (27.0-34.0); Mean Corpuscular Volume 89.8 fL (80.0-100.0); Mean Platelet Volume 7.5 fL (7.0-11.0); Mono # (Auto) 0.5 th/mm3 (0.0-0.9); Neut # (Auto) 7.3 th/mm3 (1.8-7.7); Platelet Count 233 th/mm3 (150-450); Red Blood Count 3.68 mil/mm3 (4.00-5.30); White Blood Count 9.1 th/mm3 (4.0-11.0)
[2018-04-11 08:12] LABS: Albumin 2.7 g/dL (3.4-5.0); Anion Gap 9 meq/L (5-15); Aspartate Aminotransferase 22 U/L (15-37); Blood Urea Nitrogen 6 mg/dL (7-18); Calcium 7.9 mg/dL (8.5-10.1); Chloride 109 meq/L (98-107); Glomerular Filtration Rate 87 mL/min (>89); Glucose,Random 94 mg/dL (74-106); Sodium 144 meq/L (136-145)
[2018-04-11 08:15] LABS: Alanine Aminotransferase 29 U/L (10-53); Alkaline Phosphatase 28 U/L (45-117); Total Protein 6.1 g/dL (6.4-8.2)
[2018-04-11] MEDS: ARIPiprazole 2 MG Tablet PO SCH (08:49)
[2018-04-11] MEDS: Propranolol 10 MG Tablet PO SCH (08:49)
[2018-04-11] MEDS: valACYclovir 500 MG Tab PO SCH (08:49)
[2018-04-11] MEDS: Fenofibrate 145 MG Tablet PO SCH (08:49)
[2018-04-11] MEDS: buPROPion 150 MG 12 HR Tablet PO SCH ×2 (08:50→20:21)
[2018-04-11] MEDS: Senna/Docusate Sodium 8.6/50 MG Tablet PO SCH ×2 (08:50→20:21)
--- NOTE | 2018-04-11 09:24 | P.PNIM ---
Subjective Interval history: Follow-up intractable nausea and vomiting, GERD, lap band removal, hypertension , anxiety and depression. Patient seen and examined laying in bed, complains of some nausea but no vomiting today. Denies any abdominal pain, diarrhea or constipation. Patient complains of some congestion and requesting for a breathing treatment. Denies coughing up any phlegm, denies any fever or chills. Patient denies any headache or dizziness. Patient on O2 states that she put it on just to make her feel better better and had some dizziness earlier. She took out her O2 state that she is feeling better O2 sat is 98% in room air recheck from the [employer]. Patient states that she uses CPAP at night and if you stay another night stated the will bring her CPAP from home. Physical Exam Vital signs: Vital Signs 04/10/18 13:35 04/10/18 13:45 04/10/18 14:00 Temperature 97.7 F Pulse Rate 86 74 71 Respiratory Rate 21 15 15 Blood Pressure 118/64 108/60 111/61 Pulse Oximetry 93 L 96 95 04/10/18 14:15 04/10/18 14:20 04/10/18 14:30 Temperature Pulse Rate 68 65 Respiratory Rate 16 15 16 Blood Pressure 107/61 117/65 Pulse Oximetry 95 95 04/10/18 14:45 04/10/18 15:00 04/10/18 15:15 Temperature Pulse Rate 73 68 66 Respiratory Rate 15 16 16 Blood Pressure 116/66 113/65 111/65 Pulse Oximetry 95 94 L 95 04/10/18 15:30 04/10/18 15:45 04/10/18 16:00 Temperature 97.6 F Pulse Rate 62 60 63 Respiratory Rate 16 16 16 Blood Pressure 108/59 L 109/63 114/65 Pulse Oximetry 94 L 94 L 95 04/10/18 16:05 04/10/18 20:00 04/11/18 00:00 Temperature 97.1 F L 97.6 F Pulse Rate 72 56 L Respiratory Rate 18 16 Blood Pressure 105/56 L 86/54 L Pulse Oximetry 94 L 98 94 L 04/11/18 04:00 Temperature 97.7 F Pulse Rate 55 L Respiratory Rate 16 Blood Pressure 96/54 L Pulse Oximetry 97 Intake & Output 04/10/18 04/11/18 04/11/18 18:59 06:59 18:59 Intake Total 1200 / 1200 1250 / 1250 Output Total Balance 1186 / 1186 1236 / 1236 Weight 91.626 kg 91.6 kg Intake: IV 1200 / 1200 1200 / 1200 NS Inj 1,000 ML @ 100 mls/hr IV 1000 / 1000 1000 / 1000 .CONT .Q10H CLEMENCIA Rx#:[id number] Zosyn 4.5 GM Premix 4.5 gm In 200 / 200 200 / 200 100 ml @ 200 mls/hr IV.SIG Q6H CLEMENCIA Rx#:[id number] Oral 0 / 0 50 / 50 Output: Estimated Blood Loss Other: # Voids 3 Date of Last Bowel Movement 04/06/18 Weight On Admission 91.626 kg Narrative: GENERAL: Well-developed, well-nourished, female in no apparent distress SKIN: Warm and dry. Multiple left side and abdominal area with Steri-Strips, clean dry and intact no redness no drainage HEAD: Atraumatic. Normocephalic. EYES: Pupils equal and round. No scleral icterus. No injection or drainage. ENT: No nasal bleeding or discharge. Mucous membranes pink and moist. NECK: Trachea midline. No JVD. CARDIOVASCULAR: Regular rate and rhythm. RESPIRATORY: No accessory muscle use. Clear to auscultation. Breath sounds equal bilaterally. GASTROINTESTINAL: Abdomen obese, soft, non-tender, nondistended. Hepatic and splenic margins not palpable. MUSCULOSKELETAL: Extremities without clubbing, cyanosis, or edema. No obvious deformities. NEUROLOGICAL: Awake and alert. No obvious cranial nerve deficits. Motor grossly within normal limits. Moving all 4 extremities. Normal speech. PSYCHIATRIC: Appropriate mood and affect; insight and judgment normal. Results - Labs CBC & Chem 7: 04/11/18 05:51 04/11/18 05:51 Laboratory Results - last 24 hr 04/11/18 04/11/18 05:51 05:51 WBC 9.1 RBC 3.68 L Hgb 11.2 L D Hct 33.1 L MCV 89.8 MCH 30.4 MCHC 33.8 RDW 13.0 Plt Count 233 MPV 7.5 Neut % (Auto) 80.0 H Lymph % (Auto) 14.6 [place] % (Auto) 5.0 Eos % (Auto) 0.3 Baso % (Auto) 0.1 Neut # (Auto) 7.3 Lymph # (Auto) 1.3 [place] # (Auto) 0.5 Eos # (Auto) 0.0 Baso # (Auto) 0.0 WBC Differential . Differential Comment Auto diff final Sodium 144 Potassium 3.0 L Chloride 109 H Carbon Dioxide 26.0 Anion Gap 9 BUN 6 L Creatinine 0.69 Estimated GFR 87 L Random Glucose 94 Calcium 7.9 L D Total Bilirubin 0.3 AST 22 ALT 29 Alkaline Phosphatase 28 L Total Protein 6.1 L D Albumin 2.7 L D Assessment and Plan - Assessment (1) Hypertension Code(s): I10 - Essential (primary) hypertension Status: Acute (2) Vomiting Code(s): R11.10 - Vomiting, unspecified Status: Acute (3) Pneumonia Code(s): J18.9 - Pneumonia, unspecified organism Status: Acute (4) Hx of laparoscopic gastric banding Code(s): Z98.84 - Bariatric surgery status Status: Acute - Plan This is a 62yo female with a PMHX of melanoma, GERD, anxiety, depression and previous lap band surgery who presented to [facility] ED with complaints of intractable nausea and vomiting. Intractable nausea, vomiting and abdominal pain suspect secondary to late complication of Lap Band procedure CT abd/pelvis reveals above the lap band in the distal esophagus, patchy areas of consolidation or atelectasis in the lower lungs bilaterally, hepatic steatosis -Consult Dr. Cho, appreciate assistance: s/p Lap band removal -start liquid diet -IV fluid hydration -IV antiemetics as needed Concern for aspiration pneumonia CXR with patchy consolidation in the right perihilar region CT of abdomen and pelvis: Patchy consolidation or atelectasis of bilateral lower lungs Temp max 102.2 on 04/10, currently afebrile WBC 8.0 -follow blood cultures: pending -continue IV antbx Ceftriaxone, Zosyn and Flagyl started in the ED -monitor respiratory status -add duonebs treatment, prn Sob/cough/wheezes, encourage use of IS Hypertension/bradycardia Blood pressure in the low side 96/54, Heart rate in the low side, 55 -Hold Propranolol, continue hydrochlorothiazide low-dose -continue to monitor BP and adjust treatment accordingly GERD -resume on home PPI Anxiety Depression -resume on Abilify and Bupropion DVT prophylaxis: Bilateral SCD -chemical prophylaxis contraindicated secondary to surgical intervention Code Status: Full code Discussed Condition With: Patient and nurse Discharge Planning: Discharge when cleared with surgeon (2) Vomiting Qualifiers: Vomiting type: unspecified Vomiting Intractability: unspecified Nausea presence: with nausea Qualified Code(s): R11.2 - Nausea with vomiting, unspecified (3) Pneumonia Qualifiers: Pneumonia type: due to unspecified organism Laterality: right Lung location : unspecified part of lung Qualified Code(s): J18.9 - Pneumonia, unspecified organism
[2018-04-11] MEDS ORDERED: Enoxaparin Inj 40 MG/0.4 ML Syringe SQ SCH (12:00)
--- NOTE | 2018-04-11 14:51 | P.DS ---
Date of admission: 04/10/18 13:13 Primary care physician: Marky Farrar MD Attending physician on discharge: Brad Galloway Anticipated date of discharge: 04/11/18 Brief History from admission: This is a 62yo female with a PMHX of HTN, melanoma, GERD, anxiety, depression and previous lap band surgery who presented to [facility] ED with complaints of intractable nausea and vomiting. Patient states she had a lap band placed approximately 10 years ago however over the past year she has had increasing difficulties with inability to keep anything down secondary to complications from her lap band. Over the past month and more so over the past 3-4 days, she has had near constant reflux, nausea and vomiting. She has been unable to sleep. She also has developed fever and was recently started on azithromycin by her bariatric surgeon. She has been taking Zofran at home without any relief. Patient is reportedly scheduled to have removal of her lap band in the near future by her bariatric surgeon Dr. Cho. Patient has had a recent upper endoscopy by her certified ophthalmic technician who suggested the lap to be removed due to it being displaced and having a lot of adhesions. Patient states she came to the ED today because she is having difficulty managing her secretions and states that she has coughing spasms that cause her to aspirate. She denies any complaints of chest pain or shortness of breath. She complains of associated abdominal pain mostly on the left side. Patient update on day of discharge: Follow-up intractable nausea and vomiting, GERD, lap band removal, hypertension , anxiety and depression. Patient seen and examined laying in bed, complains of some nausea but no vomiting today. Denies any abdominal pain, diarrhea or constipation. Patient complains of some congestion and requesting for a breathing treatment. Denies coughing up any phlegm, denies any fever or chills. Patient denies any headache or dizziness. Patient on O2 states that she put it on just to make her feel better better and had some dizziness earlier. She took out her O2 state that she is feeling better O2 sat is 98% in room air recheck from the [employer]. Patient states that she uses CPAP at night and if you stay another night stated the will bring her CPAP from home. DS: Diagnosis - Discharge Diagnosis (1) Hypertension Status: Acute (2) Vomiting Status: Acute (3) Pneumonia Status: Acute (4) Hx of laparoscopic gastric banding Status: Acute DS: Medications - Discharge Medications Prescriptions: levofloxacin [Levaquin] 750 mg PO DAILY 7 Days #7 tab DS: Summary Hospital Course: This is a 62yo female with a PMHX of HTN, melanoma, GERD, anxiety, depression and previous lap band surgery who presented to [facility] ED with complaints of intractable nausea and vomiting. Patient states she had a lap band placed approximately 10 years ago however over the past year she has had increasing difficulties with inability to keep anything down secondary to complications from her lap band. Over the past month and more so over the past 3-4 days, she has had near constant reflux, nausea and vomiting. Patient went for the removal of the lap band with Dr. Cho. On admission he was she was found to have a patchy consolidation and right perihilar region by chest x- ray with a concern of possible aspiration pneumonia, treated with IV antibiotic. Patient could to discharge today with Dr. Cho. Will discharge patient on p.o. antibiotic. - Time Spent with Patient Total time spent providing and/or coordinating discharge services: Less than 30 minutes - Quality: VTE Deep Vein Thrombosis/Pulmonary Embolism Present on Admission: No Exam Vital signs: Vital Signs 04/10/18 15:00 04/10/18 15:15 04/10/18 15:30 Temperature Pulse Rate 68 66 62 Respiratory Rate 16 16 16 Blood Pressure 113/65 111/65 108/59 L Pulse Oximetry 94 L 95 94 L 04/10/18 15:45 04/10/18 16:00 04/10/18 16:05 Temperature 97.6 F Pulse Rate 60 63 Respiratory Rate 16 16 Blood Pressure 109/63 114/65 Pulse Oximetry 94 L 95 94 L 04/10/18 20:00 04/11/18 00:00 04/11/18 04:00 Temperature 97.1 F L 97.6 F 97.7 F Pulse Rate 72 56 L 55 L Respiratory Rate 18 16 16 Blood Pressure 105/56 L 86/54 L 96/54 L Pulse Oximetry 98 94 L 97 04/11/18 08:00 04/11/18 09:21 04/11/18 10:37 Temperature 98.0 F Pulse Rate 69 72 Respiratory Rate 16 20 16 Blood Pressure 121/60 Pulse Oximetry 98 04/11/18 12:00 Temperature 97.8 F Pulse Rate 60 Respiratory Rate 14 Blood Pressure 99/58 L Pulse Oximetry 97 Intake & Output 04/10/18 04/11/18 04/11/18 18:59 06:59 18:59 Intake Total 1200 / 1200 1250 / 1250 Output Total Balance 1186 / 1186 1236 / 1236 Weight 91.626 kg 91.6 kg Intake: IV 1200 / 1200 1200 / 1200 NS Inj 1,000 ML @ 100 mls/hr IV 1000 / 1000 1000 / 1000 .CONT .Q10H [facility] Rx#:[id number] Zosyn 4.5 GM Premix 4.5 gm In 200 / 200 200 / 200 100 ml @ 200 mls/hr IV.SIG Q6H [facility] Rx#:[id number] Oral 0 / 0 50 / 50 Output: Estimated Blood Loss Other: # Voids 3 Date of Last Bowel Movement 04/06/18 Weight On Admission 91.626 kg Narrative: GENERAL: Well-developed, well-nourished, female in no apparent distress SKIN: Warm and dry. Multiple abdominal area with Steri-Strips, clean dry and intact no redness no drainage HEAD: Atraumatic. Normocephalic. EYES: Pupils equal and round. No scleral icterus. No injection or drainage. ENT: No nasal bleeding or discharge. Mucous membranes pink and moist. NECK: Trachea midline. No JVD. CARDIOVASCULAR: Regular rate and rhythm. RESPIRATORY: No accessory muscle use. Clear to auscultation. Breath sounds equal bilaterally. GASTROINTESTINAL: Abdomen obese, soft, non-tender, nondistended. Hepatic and splenic margins not palpable. MUSCULOSKELETAL: Extremities without clubbing, cyanosis, or edema. No obvious deformities. NEUROLOGICAL: Awake and alert. No obvious cranial nerve deficits. Motor grossly within normal limits. Moving all 4 extremities. Normal speech. PSYCHIATRIC: Appropriate mood and affect; insight and judgment normal. Results Procedures completed during hospitalization: Removal of lap band Labs on day of discharge: Labs from last 24 hours 04/11/18 04/11/18 05:51 05:51 WBC 9.1 RBC 3.68 L Hgb 11.2 L D Hct 33.1 L MCV 89.8 MCH 30.4 MCHC 33.8 RDW 13.0 Plt Count 233 MPV 7.5 Neut % (Auto) 80.0 H Lymph % (Auto) 14.6 [place] % (Auto) 5.0 Eos % (Auto) 0.3 Baso % (Auto) 0.1 Neut # (Auto) 7.3 Lymph # (Auto) 1.3 [place] # (Auto) 0.5 Eos # (Auto) 0.0 Baso # (Auto) 0.0 WBC Differential . Differential Comment Auto diff final Sodium 144 Potassium 3.0 L Chloride 109 H Carbon Dioxide 26.0 Anion Gap 9 BUN 6 L Creatinine 0.69 Estimated GFR 87 L Random Glucose 94 Calcium 7.9 L D Total Bilirubin 0.3 AST 22 ALT 29 Alkaline Phosphatase 28 L Total Protein 6.1 L D Albumin 2.7 L D Preliminary micro results at discharge 04/10/18 02:20 Aerobic Blood Culture - Preliminary Blood - Peripheral No growth in 1 day Anaerobic Blood Culture - Preliminary No growth in 1 day 04/10/18 02:10 Aerobic Blood Culture - Preliminary Blood - Peripheral No growth in 1 day Anaerobic Blood Culture - Preliminary No growth in 1 day - Impressions ITS Impressions Chest X-Ray 04/10/18 01:21 CONCLUSION: Mild suspected patchy consolidation in the right perihilar region. Abdomen/Pelvis CT 04/10/18 03:52 CONCLUSION: 1. Lap band in place with distention of the stomach above the lap band and the distal esophagus. 2. Patchy areas of consolidation or atelectasis in the lower lungs bilaterally. 3. Hepatic steatosis. Discharge Plan - Discharge Disposition Patient Disposition: Discharge Home - Discharge Condition Condition: Stable - Discharge Order Discharge Orders: Discharge Order (Routine); Ordered 04/11/18 Ordered By: Piter Wilkes - Discharge Details Anticipated Discharge Date: 04/11/18 - Physicians Team Primary Care Provider: Marky Farrar Attending Provider: Brad Gallowya Other Providers: Piter Wilkes MD
--- NOTE | 2018-04-11 15:02 | P.PNGS ---
Subjective Patient reports: pain is less, tolerating liquids well, flatus Interval history: denies chest pain, palpitations, SOB, N/V Physical Exam Vital signs: Vital Signs 04/10/18 15:00 04/10/18 15:15 04/10/18 15:30 Temperature Pulse Rate 68 66 62 Respiratory Rate 16 16 16 Blood Pressure 113/65 111/65 108/59 L Pulse Oximetry 94 L 95 94 L 04/10/18 15:45 04/10/18 16:00 04/10/18 16:05 Temperature 97.6 F Pulse Rate 60 63 Respiratory Rate 16 16 Blood Pressure 109/63 114/65 Pulse Oximetry 94 L 95 94 L 04/10/18 20:00 04/11/18 00:00 04/11/18 04:00 Temperature 97.1 F L 97.6 F 97.7 F Pulse Rate 72 56 L 55 L Respiratory Rate 18 16 16 Blood Pressure 105/56 L 86/54 L 96/54 L Pulse Oximetry 98 94 L 97 04/11/18 08:00 04/11/18 09:21 04/11/18 10:37 Temperature 98.0 F Pulse Rate 69 72 Respiratory Rate 16 20 16 Blood Pressure 121/60 Pulse Oximetry 98 04/11/18 12:00 Temperature 97.8 F Pulse Rate 60 Respiratory Rate 14 Blood Pressure 99/58 L Pulse Oximetry 97 Intake & Output 04/10/18 04/11/18 04/11/18 18:59 06:59 18:59 Intake Total 1200 / 1200 1250 / 1250 Output Total Balance 1186 / 1186 1236 / 1236 Weight 91.626 kg 91.6 kg Intake: IV 1200 / 1200 1200 / 1200 NS Inj 1,000 ML @ 100 mls/hr IV 1000 / 1000 1000 / 1000 .CONT .Q10H [facility] Rx#:[id number] Zosyn 4.5 GM Premix 4.5 gm In 200 / 200 200 / 200 100 ml @ 200 mls/hr IV.SIG Q6H [facility] Rx#:[id number] Oral 0 / 0 50 / 50 Output: Estimated Blood Loss Other: # Voids 3 Date of Last Bowel Movement 04/06/18 Weight On Admission 91.626 kg - Constitutional no acute distress - Routine Neck Exam Present: supple - Routine Respiratory Exam Present: CTA bilaterally - Routine Cardiovascular Exam Present: RRR, S1, S2 - Routine Abdominal Exam Present: soft, tenderness Comments: normal post operative tenderness, laproscopic sites CDI Results - Labs 04/11/18 05:51 04/11/18 05:51 Laboratory Results - last 24 hr 04/11/18 04/11/18 05:51 05:51 WBC 9.1 RBC 3.68 L Hgb 11.2 L D Hct 33.1 L MCV 89.8 MCH 30.4 MCHC 33.8 RDW 13.0 Plt Count 233 MPV 7.5 Neut % (Auto) 80.0 H Lymph % (Auto) 14.6 [place] % (Auto) 5.0 Eos % (Auto) 0.3 Baso % (Auto) 0.1 Neut # (Auto) 7.3 Lymph # (Auto) 1.3 [place] # (Auto) 0.5 Eos # (Auto) 0.0 Baso # (Auto) 0.0 WBC Differential . Differential Comment Auto diff final Sodium 144 Potassium 3.0 L Chloride 109 H Carbon Dioxide 26.0 Anion Gap 9 BUN 6 L Creatinine 0.69 Estimated GFR 87 L Random Glucose 94 Calcium 7.9 L D Total Bilirubin 0.3 AST 22 ALT 29 Alkaline Phosphatase 28 L Total Protein 6.1 L D Albumin 2.7 L D - Imaging Imaging: ITS Impressions Chest X-Ray 04/10/18 01:21 CONCLUSION: Mild suspected patchy consolidation in the right perihilar region. Abdomen/Pelvis CT 04/10/18 03:52 CONCLUSION: 1. Lap band in place with distention of the stomach above the lap band and the distal esophagus. 2. Patchy areas of consolidation or atelectasis in the lower lungs bilaterally. 3. Hepatic steatosis. Assessment and Plan - Plan POD#1 laproscopic removal of gastric band Slippage with dilation of stomach tissue and esophagus superior to band Hiatal hernia not repaired. Tolerating clears Replace K+ D/C home today Code Status: full Discussed Condition With: patient
[2018-04-11] MEDS: Potassium Chlor 10 mEq Premix 10 MEQ/100 ML PIGGYBACK IV.SIG SCH ×3 (16:28→20:21)
[2018-04-11] MEDS: Zolpidem Tartrate 5 MG Tablet PO SCH (20:21)
--- NOTE | 2018-04-11 22:45 | P.PN ---
Subjective Interval history: NOT SEEN Physical Exam Vital signs: Vital Signs 04/11/18 00:00 04/11/18 04:00 04/11/18 08:00 Temperature 97.6 F 97.7 F 98.0 F Pulse Rate 56 L 55 L 69 Respiratory Rate 16 16 16 Blood Pressure 86/54 L 96/54 L 121/60 Pulse Oximetry 94 L 97 98 04/11/18 09:21 04/11/18 10:37 04/11/18 12:00 Temperature 97.8 F Pulse Rate 72 60 Respiratory Rate 20 16 14 Blood Pressure 99/58 L Pulse Oximetry 97 04/11/18 16:00 04/11/18 20:00 Temperature 97.4 F L 97.8 F Pulse Rate 64 70 Respiratory Rate 16 20 Blood Pressure 102/60 104/58 L Pulse Oximetry 98 97 Intake & Output 04/11/18 04/11/18 04/12/18 06:59 18:59 06:59 Intake Total 1250 / 1250 3100 / 3100 1300 / 1300 Output Total Balance 1236 / 1236 3100 / 3100 1300 / 1300 Weight 91.6 kg Intake: IV 1200 / 1200 1300 / 1300 1300 / 1300 NS Inj 1,000 ML @ 100 mls/hr IV 1000 / 1000 1000 / 1000 1000 / 1000 .CONT .Q10H [facility] Rx#:[id number] Zosyn 4.5 GM Premix 4.5 gm In 200 / 200 200 / 200 100 / 100 100 ml @ 200 mls/hr IV.SIG Q6H [facility] Rx#:[id number] KCl 10 mEq Premix Inj 10 meq In 100 / 100 200 / 200 100 ml @ 100 mls/hr IV.SIG Q1H [facility] Rx#:[id number] Oral 50 / 50 1800 / 1800 Output: Estimated Blood Loss Other: # Voids 3 6 Date of Last Bowel Movement 04/06/18 Narrative: GENERAL: Well-developed, well-nourished, female in no apparent distress SKIN: Warm and dry. Multiple left side and abdominal area with Steri-Strips, clean dry and intact no redness no drainage CARDIOVASCULAR: Regular rate and rhythm. RESPIRATORY: No accessory muscle use. Clear to auscultation. Breath sounds equal bilaterally. GASTROINTESTINAL: Abdomen obese, soft, non-tender, nondistended. MUSCULOSKELETAL: Extremities without clubbing, cyanosis, or edema. No obvious deformities. NEUROLOGICAL: Awake and alert. No obvious cranial nerve deficits. Motor grossly within normal limits. Moving all 4 extremities. Normal speech. PSYCHIATRIC: Appropriate mood and affect; insight and judgment normal. Results - Labs CBC & Chem 7: 04/11/18 05:51 04/11/18 05:51 Laboratory Results - last 24 hr 04/11/18 04/11/18 05:51 05:51 WBC 9.1 RBC 3.68 L Hgb 11.2 L D Hct 33.1 L MCV 89.8 MCH 30.4 MCHC 33.8 RDW 13.0 Plt Count 233 MPV 7.5 Neut % (Auto) 80.0 H Lymph % (Auto) 14.6 [place] % (Auto) 5.0 Eos % (Auto) 0.3 Baso % (Auto) 0.1 Neut # (Auto) 7.3 Lymph # (Auto) 1.3 [place] # (Auto) 0.5 Eos # (Auto) 0.0 Baso # (Auto) 0.0 WBC Differential . Differential Comment Auto diff final Sodium 144 Potassium 3.0 L Chloride 109 H Carbon Dioxide 26.0 Anion Gap 9 BUN 6 L Creatinine 0.69 Estimated GFR 87 L Random Glucose 94 Calcium 7.9 L D Total Bilirubin 0.3 AST 22 ALT 29 Alkaline Phosphatase 28 L Total Protein 6.1 L D Albumin 2.7 L D Microbiology 04/10/18 02:20 Blood - Peripheral Aerobic Blood Culture - Preliminary No growth in 1 day 04/10/18 02:20 Blood - Peripheral Anaerobic Blood Culture - Preliminary No growth in 1 day 04/10/18 02:10 Blood - Peripheral Aerobic Blood Culture - Preliminary No growth in 1 day 04/10/18 02:10 Blood - Peripheral Anaerobic Blood Culture - Preliminary No growth in 1 day - Imaging ITS Impressions Chest X-Ray 04/10/18 01:21 CONCLUSION: Mild suspected patchy consolidation in the right perihilar region. Abdomen/Pelvis CT 04/10/18 03:52 CONCLUSION: 1. Lap band in place with distention of the stomach above the lap band and the distal esophagus. 2. Patchy areas of consolidation or atelectasis in the lower lungs bilaterally. 3. Hepatic steatosis. - Procedures Removal of lap band Assessment and Plan - Assessment (1) Hypertension Code(s): I10 - Essential (primary) hypertension Status: Acute (2) Vomiting Code(s): R11.10 - Vomiting, unspecified Status: Acute (3) Pneumonia Code(s): J18.9 - Pneumonia, unspecified organism Status: Acute (4) Hx of laparoscopic gastric banding Code(s): Z98.84 - Bariatric surgery status Status: Acute - Plan This is a 62 yo female with a PMHX of melanoma, GERD, anxiety, depression and previous lap band surgery who presented to [facility] ED with complaints of intractable nausea and vomiting. Intractable nausea, vomiting and abdominal pain suspect secondary to late complication of Lap Band procedure CT abd/pelvis reveals above the lap band in the distal esophagus, patchy areas of consolidation or atelectasis in the lower lungs bilaterally, hepatic steatosis -Consult Dr. Cho, appreciate assistance: s/p Lap band removal -start liquid diet -IV fluid hydration -IV antiemetics as needed Concern for aspiration pneumonia CXR with patchy consolidation in the right perihilar region CT of abdomen and pelvis: Patchy consolidation or atelectasis of bilateral lower lungs Temp max 102.2 on 04/10, currently afebrile WBC 8.0 -follow blood cultures: pending -continue IV antbx Ceftriaxone, Zosyn and Flagyl started in the ED -monitor respiratory status -add duonebs treatment, prn Sob/cough/wheezes, encourage use of IS Hypertension/bradycardia Blood pressure in the low side 96/54, Heart rate in the low side, 55 -Hold Propranolol, continue hydrochlorothiazide low-dose -continue to monitor BP and adjust treatment accordingly GERD -resume on home PPI Anxiety Depression -resume on Abilify and Bupropion DVT prophylaxis: Bilateral SCD -chemical prophylaxis contraindicated secondary to surgical intervention Code Status: Full code Discussed Condition With: Patient and nurse Discharge Planning: Discharge when cleared with surgeon (2) Vomiting Qualifiers: Vomiting type: unspecified Vomiting Intractability: unspecified Nausea presence: with nausea Qualified Code(s): R11.2 - Nausea with vomiting, unspecified (3) Pneumonia Qualifiers: Pneumonia type: due to unspecified organism Laterality: right Lung location : unspecified part of lung Qualified Code(s): J18.9 - Pneumonia, unspecified organism
[2018-04-12] MEDS: Sod Chloride 0.9% Inj 1,000 ML IV.CONT SCH (00:24)
[2018-04-12 01:11] VITALS: TEMP 98.4
[2018-04-12] MEDS: Piperacil/Tazo 4.5 GM Premix 4.5 GM/100 ML BAG IV.SIG SCH ×2 (02:36→08:24)
[2018-04-12 06:21] LABS: Baso % (Auto) 0.3 % (0.0-2.0); Eos # (Auto) 0.2 th/mm3 (0.0-0.4); Eos % (Auto) 2.6 % (0.0-4.0); Hematocrit 32.8 % (35.0-46.0); Hemoglobin 11.1 gm/dL (11.6-15.3); Lymph % (Auto) 30.7 % (9.0-44.0); Mean Corpuscular HGB Conc 33.9 % (32.0-36.0); Mean Corpuscular Hemoglobin 30.5 pg (27.0-34.0); Mean Corpuscular Volume 89.9 fL (80.0-100.0); Mean Platelet Volume 7.4 fL (7.0-11.0); Mono # (Auto) 0.5 th/mm3 (0.0-0.9); Neut # (Auto) 3.9 th/mm3 (1.8-7.7); Neut % (Auto) 59.4 % (16.0-70.0); Platelet Count 236 th/mm3 (150-450); Red Blood Count 3.65 mil/mm3 (4.00-5.30); White Blood Count 6.6 th/mm3 (4.0-11.0)
[2018-04-12 06:42] LABS: Calcium 7.6 mg/dL (8.5-10.1); Carbon Dioxide 27.1 meq/L (21.0-32.0); Magnesium 1.8 mg/dL (1.5-2.5); Potassium 3.1 meq/L (3.5-5.1)
[2018-04-12] MEDS: Senna/Docusate Sodium 8.6/50 MG Tablet PO SCH (08:25)
[2018-04-12] MEDS: buPROPion 150 MG 12 HR Tablet PO SCH (08:25)
[2018-04-12] MEDS: valACYclovir 500 MG Tab PO SCH (08:25)
[2018-04-12] MEDS: Fenofibrate 145 MG Tablet PO SCH (08:25)
[2018-04-12] MEDS: ARIPiprazole 2 MG Tablet PO SCH (08:25)
[2018-04-12 09:25] VITALS: BP 124/73; PULSE 56; RESP 17; O2SAT 97
--- NOTE | 2018-04-13 12:56 | MP ---
cc: Piter Wilkes MD DATE OF OPERATION: 04/10/2018 PREOPERATIVE DIAGNOSIS: Slipped gastric band. POSTOPERATIVE DIAGNOSIS: Slipped gastric band. PROCEDURE PERFORMED: Laparoscopic removal of gastric band and abdominal wall port. SURGEON: Piter Wilkes MD ANESTHESIA: General endotracheal anesthesia. ESTIMATED BLOOD LOSS: Scant. FINDINGS: Slipped gastric band with dilated stomach proximally. SPECIMENS: None. COMPLICATIONS: None. DESCRIPTION OF PROCEDURE: The patient was brought to the operating room and placed on the operating table in supine position. Bilateral sequential inflation devices were placed on the lower extremities and general anesthesia instituted. The abdomen was prepped and draped sterilely. The patient's old scars were anesthetized with 0.25% Marcaine with epinephrine. Skin incisions were made. A 5 mm Optiview port was placed through the epigastric incision under direct vision and pneumoperitoneum was created. Under direct vision, a 5 mm left upper quadrant, 12 mm left upper quadrant and two 5 mm right upper quadrant ports were placed. Prior to placement of all ports, the skin and peritoneum were anesthetized with 0.25% Marcaine with epinephrine. The patient was placed in reverse Trendelenburg position. The Bernice-Flex retractor was placed. The left lobe of the liver was retracted. Findings as above. Adhesions were taken down sharply. The capsule exterior to the band was sharply divided. The band was then divided and brought from its retrocardiac position. The gastrogastric plications were taken down. The tubing of the band was divided at the peritoneum. The band was retrieved from the peritoneal cavity through the 12 mm port site. Operative field was inspected. Hemostasis was assured. CO2 was released. All laparoscopic ports were removed. Attention was then focused on the Lap-Band port in the left upper quadrant. The capsule surrounding this was incised. The port was removed from the abdominal wall sharply and sent off the field. The subcutaneous tissue at this port site was approximated with 3-0 Vicryl. All skin edges were approximated with 4-0 Monocryl. The abdominal wall was cleaned and sterile dressings were placed. The patient was awakened and taken to the recovery room. MD CHELSI Riddle/samm , 09:59 AM , 10:06 AM
== END 2018-04-12 10:26 | disposition home or self-care (01) ==
LOC: NEPC 00:39 → INTOOBSV 05:49 → NEDA 05:49 → NEPGCP 06:45 → NEDH 10:17 → NEPGCP 10:18 → N07 11:31
PROVIDERS: ADMIT Hospitalist; ATTEND Hospitalist